=== PATIENT | male | born 1955 | race Two or more races ===

== ENCOUNTER 2017-05-07 19:13 | Emergency (ER) | payer SELFPAY ==
[~2017-05-07] VITALS: Ht 147.3 cm; Wt 49.9 kg
[2017-05-07 19:45] VITALS: BP 132/74
[2017-05-07] MEDS ORDERED: Albuterol ud Inhalation HHN ONE (20:30)
--- NOTE | 2017-05-07 20:44 | Emergency Room Report ---
History of Present Illness General Chief Complaint: Headache Source: Patient Present Illness HPI 61-year-old male presents to the emergency department complaining of dizziness x4 days in addition to headache, and nausea vomiting with chest pain. Patient is [place]-speaking with accent from [place] so history of present illness and ROS is somewhat limited due to language barrier. He presents with paperwork showing that he was discharged yesterday after being evaluated at [facility] in emergency department he was ultimately diagnosed with hernia and anemia.He reports history of high blood pressure. Denies blood in the vomit or stool he denies constipation or diarrhea. Pt. reports epigastric abdominal pain that he reports as constant. pt. describes his dizziness as being on a boat. denies unilateral weakness. Reports fevers and chills. Allergies: Coded Allergies: No Known Allergies (Unverified , 05/07/17) Patient History Limited by: language barrier Past Medical History: see triage record Past Surgical History: none Pertinent Family History: none Reviewed Nursing Documentation: PMH: Agreed, PSxH: Agreed Nursing Documentation-PMH Hx Hypertension: Yes Hx Diabetes: Yes Review of Systems All Other Systems: negative except mentioned in HPI Physical Exam Vital Signs Date Time Temp Pulse Resp B/P (MAP) Pulse Ox O2 Delivery O2 Flow Rate FiO2 05/07/17 18:57 98.1 88 16 132/74 98 Room Air Sp02 EP Interpretation: reviewed, normal General Appearance: no apparent distress, alert, GCS 15, non-toxic Head: normocephalic, atraumatic Eyes: bilateral eye normal inspection, bilateral eye PERRL ENT: hearing grossly normal, normal voice Neck: full range of motion Respiratory: chest non-tender, lungs clear, normal breath sounds, speaking full sentences, wheezing Cardiovascular #1: regular rate, rhythm, no edema, normal capillary refill Cardiovascular #2: 2+ radial (R), 2+ radial (L) Gastrointestinal: normal bowel sounds, soft, other - Mild epigastric tenderness to palpation otherwise normal abdominal exam Rectal: deferred Musculoskeletal: back normal, gait/station normal, normal range of motion, non- tender Neurologic: alert, oriented x3, responsive, motor strength/tone normal, DTRs symmetric - knee and brachioradialis tested. , sensory intact, cerebellar normal , normal gait, speech normal, no pronator, other - Equal boiler or engine operator strength, negative Michelle sign, oriented Skin: normal color, no rash, warm/dry, well hydrated Medical Decision Making PA Attestation Dr. Vogel is my supervising Physician whom patient management has been discussed with. Diagnostic Impression: Primary Impression: Nausea & vomiting Qualified Codes: R11.2 - Nausea with vomiting, unspecified Additional Impressions: Headache Qualified Codes: R51 - Headache Anemia Qualified Codes: D64.9 - Anemia, unspecified Pancytopenia ER Course 61-year-old male presents to the emergency department complaining of dizziness x4 days in addition to headache, and nausea vomiting with chest pain. Patient is Serbian-speaking with accent from [place] so history of present illness and ROS is somewhat limited due to language barrier. He presents with paperwork showing that he was discharged yesterday after being evaluated at [facility] in emergency department he was ultimately diagnosed with hernia and anemia.He reports history of high blood pressure. Denies blood in the vomit or stool he denies constipation or diarrhea. Pt. reports epigastric abdominal pain that he reports as constant. pt. describes his dizziness as being on a boat. denies unilateral weakness. Reports fevers and chills. Ddx considered but are not limited to ND, pneumonia, contusion, costochondritis , PE, ACS, dehydration, hypovolemia, dysrhythmia, peripheral vertigo, central vertigo, CVA, or acute intracranial process just to name a few. Vital signs: are WNL, pt. is afebrile H&PE are most consistent with Nausea and vomiting with mild dehydration in a pt. that was previously evaluated and d/c from an alternate ED within previous 48 hours. -Patient has grossly normal neurological examination I do not feel that this patient exhibits signs of neurological deficits that would prompt CT imaging of the head at this time. Will continue to monitor him and reevaluate after interventions and initial work-up. If necessary will reconsider need for head CT. ORDERS: - EK beats per minute normal sinus rhythm reviewed by Dr. Vogel, his interpretation has been described byMonique Venegas PA-C -CBC: pancytopenia, anemia no evidence of acute hemorrhage -CMP: elevated BUN 21, and Ck 322 otherwise mostly unremarkable -Lipase: WNL -Troponin: 0.005 ( negative) -UDS: positive for barbituates -Serum EtOH: <3, no acute intoxication CXR: Pending--- Delay in shooting cxr film by radiology. Pt. now requesting to be d/c and does not want to wait. all labs ordered at the same time as cxr have resulted. ED INTERVENTIONS: - Zofran -Pepcid PO -Tylenol PO -Albuterol HHN --- unusual delay in administration of nebulized treatment. pt. did not want to wait for treatment, labs have already been resulted. - re-examination pt. continues to remain stable in the ED, no episodes of vomiting, no changes to neurological examination. pt. requests to go home and reports that his symptoms have resolved with above medications. DISCHARGE: At this time pt. is stable for d/c to home. Will provide printed patient care instructions, and any necessary prescriptions. Care plan and follow up instructions have been discussed with the patient prior to discharge. Labs Test 05/07/17 21:12 05/07/17 21:13 Urine Opiates Screen Negative (NEGATIVE) Urine Barbiturates Screen Positive (NEGATIVE) Phencyclidine (PCP) Screen Negative (NEGATIVE) Urine Amphetamines Screen Negative (NEGATIVE) Urine Benzodiazepines Screen Negative (NEGATIVE) Urine Cocaine Screen Negative (NEGATIVE) Urine Marijuana (THC) Screen Negative (NEGATIVE) White Blood Count 11.4 K/UL (4.8-10.8) Red Blood Count 4.12 M/UL (4.70-6.10) Hemoglobin 11.0 G/DL (14.2-18.0) Hematocrit 36.4 % (42.0-52.0) Mean Corpuscular Volume 88 FL (80-99) Mean Corpuscular Hemoglobin 26.7 PG (27.0-31.0) Mean Corpuscular Hemoglobin Concent 30.2 G/DL (32.0-36.0) Red Cell Distribution Width 14.7 % (11.6-14.8) Platelet Count 225 K/UL (150-450) Mean Platelet Volume 6.9 FL (6.5-10.1) Neutrophils (%) (Auto) 66.6 % (45.0-75.0) Lymphocytes (%) (Auto) 19.9 % (20.0-45.0) Monocytes (%) (Auto) 11.4 % (1.0-10.0) Eosinophils (%) (Auto) 1.3 % (0.0-3.0) Basophils (%) (Auto) 0.8 % (0.0-2.0) Sodium Level 136 MMOL/L (136-145) Potassium Level 4.0 MMOL/L (3.5-5.1) Chloride Level 102 MMOL/L (98-107) Carbon Dioxide Level 28 MMOL/L (21-32) Anion Gap 6 mmol/L (5-15) Blood Urea Nitrogen 21 mg/dL (7-18) Creatinine 0.8 MG/DL (0.55-1.30) Estimat Glomerular Filtration Rate > 60 mL/min (>60) Glucose Level 91 MG/DL (74-106) Calcium Level 7.9 MG/DL (8.5-10.1) Total Bilirubin 0.2 MG/DL (0.2-1.0) Aspartate Amino Transf (AST/SGOT) 25 U/L (15-37) Alanine Aminotransferase (ALT/SGPT) 20 U/L (12-78) Alkaline Phosphatase 80 U/L (46-116) Total Creatine Kinase 322 U/L (26-308) Troponin I 0.005 ng/mL (0.000-0.056) Total Protein 8.4 G/DL (6.4-8.2) Albumin 3.6 G/DL (3.4-5.0) Globulin 4.8 g/dL Albumin/Globulin Ratio 0.8 (1.0-2.7) Lipase 149 U/L (73-393) Serum Alcohol < 3 mg/dL EKG Diagnostic Results Rate: normal Rhythm: NSR ST Segments: no acute changes ASA given to the pt in ED: No PA Scribe Text Monique Venegas PAVicente Last Vital Signs Date Time Temp Pulse Resp B/P (MAP) Pulse Ox O2 Delivery O2 Flow Rate FiO2 05/07/17 18:57 98.1 88 16 132/74 98 Room Air Disposition: HOME, SELF-CARE Condition: Stable Scripts Iron,Carbonyl/Ascorbic Acid (IRON 100-VITAMIN C TABLET) 1 Each Tablet 1 EACH PO DAILY, #30 TAB Prov: Monique Venegas P.A. 05/07/17 Ranitidine Hcl* (ZANTAC*) 150 Mg Tablet 150 MG ORAL TWICE A DAY, #20 TAB Prov: Monique Venegas P.A. 05/07/17 Ondansetron Odt* (ZOFRAN ODT*) 4 Mg Tab.rapdis 4 MG ORAL Q6H Y for Nausea & Vomiting, #15 TAB Prov: Monique Venegas 05/07/17 Patient Instructions: Anemia, Nonspecific, General Headache Without Cause, Nausea and Vomiting, Adult, [id number] Additional Instructions: Take medications as directed. Follow up with a Primary Care Provider in 2 days, even if your symptoms have resolved. recommend Neurologist evaluation if you continue to have dizziness and frequent Headaches. --Please review list of primary care clinics, if you do not already have a primary care provider Return sooner to ED if new symptoms occur, or current symptoms become worse. - Please note that this Emergency Department Report was dictated using [employer] plating machine operator technology software, occasionally this can lead to erroneous entry secondary to interpretation by the dictation equipment. Monique Venegas May 07, 2017 20:44
[2017-05-07] MEDS ORDERED: Mylanta II UD 30ml ORAL ONE (21:00)
[2017-05-07 21:35] LABS: BASOPHILS % (AUTO) 0.8 % (0.0-2.0); EOSINOPHILS % (AUTO) 1.3 % (0.0-3.0); LYMPHOCYTES % (AUTO) 19.9 % (20.0-45.0); MEAN CORPUSCULAR HEMOGLOBIN 26.7 PG (27.0-31.0); MEAN CORPUSCULAR HGB CONC 30.2 G/DL (32.0-36.0); MEAN CORPUSCULAR VOLUME 88 FL (80-99); MEAN PLATELET VOLUME 6.9 FL (6.5-10.1); MONOCYTES % (AUTO) 11.4 % (1.0-10.0); NEUTROPHILS % (AUTO) 66.6 % (45.0-75.0); PLATELET COUNT 225 K/UL (150-450); RED BLOOD COUNT 4.12 M/UL (4.70-6.10); RED CELL DISTRIBUTION WIDTH 14.7 % (11.6-14.8); WHITE BLOOD COUNT 11.4 K/UL (4.8-10.8)
[2017-05-07 21:57] LABS: ANION GAP 6 mmol/L (5-15); CALCIUM 7.9 MG/DL (8.5-10.1); CARBON DIOXIDE 28 MMOL/L (21-32); CHLORIDE 102 MMOL/L (98-107); CREATININE 0.8 MG/DL (0.55-1.30); GLOMERULAR FILTRATION RATE > 60 mL/min (>60); SODIUM 136 MMOL/L (136-145)
[2017-05-07 21:59] LABS: LIPASE 149 U/L (73-393)
[2017-05-07 22:01] LABS: ALANINE AMINOTRANSFERASE 20 U/L (12-78); ALBUMIN/GLOBULIN RATIO 0.8 (1.0-2.7); ASPARTATE AMINO TRANSFERASE 25 U/L (15-37); TOTAL PROTEIN 8.4 G/DL (6.4-8.2)
[2017-05-07] MEDS ORDERED: ZANTAC150 MG ORAL (22:07)
[2017-05-07] MEDS ORDERED: IRON 100-VITAM1 EACH PO (22:07)
[2017-05-07] MEDS ORDERED: ZOFRAN ODT4 MG ORAL (22:07)
[2017-05-07 22:10] LABS: ALCOHOL < 3 mg/dL
[2017-05-07 22:21] VITALS: BP 132/74
--- NOTE | 2017-05-22 00:24 | Cardiology Report ---
APPROVED REPORT EKG Measurement Heart [id number] Normal sinus rhythm Moderate voltage criteria for LVH, may be normal variant Borderline ECG
== END 2017-05-07 22:21 | disposition home or self-care (01) ==
LOC: EDBD 19:13 → EMR 21:11
DX: D64.9 Anemia, unspecified (principal); R11.2 Nausea with vomiting, unspecified; R51 Headache; D61.818 Other pancytopenia; I10 Essential (primary) hypertension; E11.9 Type 2 diabetes mellitus without complications; E86.0 Dehydration
CPT/HCPCS: 36415; 80053; 80307; 82550; 83690; 84484; 85025; 93005; 94640; 94664; 99284; G0480; 80329